=== PATIENT | female | born 1960 | race Caucasian/White ===

== ENCOUNTER 2016-07-25 09:44 | Inpatient (IN) | payer OTHER ==
[~2016-07-25] VITALS: Ht 160 cm; Wt 107.6 kg
[~2016-07-25 09:44] MED LIST: ASPIRIN325 MG PO
[2016-07-25 10:15] VITALS: BP 134/84
[2016-07-25 16:47] VITALS: BP 171/81
[2016-07-25 18:30] LABS: HEMATOCRIT 44.6 % (36.0-46.0); MCH 29.1 PG (29.0-34.0); MCHC 34.1 G/DL (30.0-36.0); MCV 85.4 FL (83-99); MEAN PLAT.VOLUME 10.6 uM^3 (9.5-12.4); PLATELET COUNT 217 K/uL (156-360); RBC DIS.WIDTH-CV 14.5 % (11.8-14.6); RED BLOOD COUNT 5.22 M/uL (3.80-5.20); WHITE BLOOD COUNT 13.3 K/uL (4.1-10.2)
[2016-07-25 18:54] LABS: ANION GAP 10 MEQ/L (2-14); CHLORIDE 105 MEQ/L (99-109); GFR ESTIMATE (CALCULATED) > 59 mL/min/; GLUCOSE 154 mg/dL (70-99); POTASSIUM 4.1 MEQ/L (3.7-5.4); SAMPLE HEMOLYSIS CHECK 0; SAMPLE ICTERIC CHECK 0; SAMPLE LIPEMIA CHECK 0; SODIUM 141 MEQ/L (136-147); UREA NITROGEN (BUN) 11 mg/dL (9-23)
[2016-07-25 19:47] VITALS: BP 175/87
[2016-07-25 23:48] VITALS: BP 151/83
[2016-07-26 03:46] VITALS: BP 121/60
[2016-07-26 06:34] LABS: HEMATOCRIT 40.2 % (36.0-46.0); MCH 28.7 PG (29.0-34.0); MCHC 33.6 G/DL (30.0-36.0); MCV 85.4 FL (83-99); MEAN PLAT.VOLUME 10.4 uM^3 (9.5-12.4); PLATELET COUNT 243 K/uL (156-360); RBC DIS.WIDTH-CV 14.5 % (11.8-14.6); RBC DIS.WIDTH-SD 45.5 % (39-53); RED BLOOD COUNT 4.71 M/uL (3.80-5.20); WHITE BLOOD COUNT 11.7 K/uL (4.1-10.2)
[2016-07-26 07:02] LABS: ANION GAP 7 MEQ/L (2-14); CHLORIDE 106 MEQ/L (99-109); GFR ESTIMATE (CALCULATED) > 59 mL/min/; GLUCOSE 135 mg/dL (70-99); POTASSIUM 4.2 MEQ/L (3.7-5.4); SAMPLE HEMOLYSIS CHECK 0; SAMPLE ICTERIC CHECK 0; SAMPLE LIPEMIA CHECK 0; SODIUM 138 MEQ/L (136-147); UREA NITROGEN (BUN) 8 mg/dL (9-23)
[2016-07-26 07:22] VITALS: BP 146/71
[2016-07-26 10:49] VITALS: BP 131/72
[2016-07-26 16:00] VITALS: BP 144/70
[2016-07-26 19:50] VITALS: BP 128/56
[2016-07-26 22:55] VITALS: BP 116/53
[2016-07-27 04:11] VITALS: BP 114/54
[2016-07-27 07:24] VITALS: BP 134/65
[2016-07-27 07:32] LABS: HEMATOCRIT 38.8 % (36.0-46.0); MCHC 33.8 G/DL (30.0-36.0); MEAN PLAT.VOLUME 10.6 uM^3 (9.5-12.4); PLATELET COUNT 225 K/uL (156-360); RBC DIS.WIDTH-CV 14.8 % (11.8-14.6); RBC DIS.WIDTH-SD 46.1 % (39-53); RED BLOOD COUNT 4.51 M/uL (3.80-5.20); WHITE BLOOD COUNT 8.5 K/uL (4.1-10.2)
[2016-07-27 07:42] LABS: ANION GAP 5 MEQ/L (2-14); CHLORIDE 106 MEQ/L (99-109); GFR ESTIMATE (CALCULATED) > 59 mL/min/; POTASSIUM 4.1 MEQ/L (3.7-5.4); SAMPLE HEMOLYSIS CHECK 0; SAMPLE ICTERIC CHECK 0; SAMPLE LIPEMIA CHECK 0; SODIUM 139 MEQ/L (136-147); UREA NITROGEN (BUN) 12 mg/dL (9-23)
[2016-07-27 07:45] LABS: GLUCOSE 95 mg/dL (70-99)
[2016-07-27] MEDS ORDERED: TRAMADOL HCL50 MG PO (09:49)
== END 2016-07-27 17:33 | disposition home or self-care (01) | DRG 740 ==
LOC: 2SOUTH 09:44 → 2EAST 15:54 → 2SOUTH 16:56 → 2EAST 07-27 17:33
PROVIDERS: Obstetrics & Gynecology Gynecologic Oncology
DX: C54.1 Malignant neoplasm of endometrium (principal); Z68.41 Body mass index [BMI] 40.0-44.9, adult; E66.9 Obesity, unspecified
CPT/HCPCS: 80048; 85027; 86850; 86900; 86901; 86920; 88305; 88309; 94799; J0330; J0690; J1100; J1170; J1650; J1885; J2270; J2405; J2710; J2765; J3010

== ENCOUNTER 2016-08-15 12:16 | Emergency (ER) | payer OTHER ==
[~2016-08-15] VITALS: Ht 162.6 cm; Wt 104.8 kg
[~2016-08-15 12:16] MED LIST changes: +TRAMADOL HCL50 MG PO
[2016-08-15] MEDS ORDERED: NAPROXEN SODIU220 MG PO (13:00)
[2016-08-15 13:36] LABS: ADD MIUA? YES; BILIRUBIN NEGATIVE; BLOOD SMALL; COLOR YELLOW ((YELLOW)); GLUCOSE (STRIP) NEGATIVE; KETONES NEGATIVE; LEUKOCYTES TRACE; NITRITE NEGATIVE; PROTEIN (STRIP) NEGATIVE; SPECIFIC GRAVITY 1.012 (1.000-1.030); UROBILINOGEN 0.2 MG/DL (0.2-1.0)
[2016-08-15 13:36] LABS: MCH 28.4 PG (29.0-34.0); MCHC 33.8 G/DL (30.0-36.0); MEAN PLAT.VOLUME 9.9 uM^3 (9.5-12.4); PLATELET COUNT 323 K/uL (156-360); RBC DIS.WIDTH-CV 14.7 % (11.8-14.6); RBC DIS.WIDTH-SD 44.3 % (39-53); RED BLOOD COUNT 5.36 M/uL (3.80-5.20)
[2016-08-15 13:39] LABS: BACTERIA NONE SEEN /HPF; EPITHELIAL CELLS RARE /HPF; MUCUS TRACE /LPF; RED BLOOD CELLS 0-5 /HPF (0-5); UCUL ADDED? NO; WHITE BLOOD CELLS 0-5 /HPF (0-5)
[2016-08-15 13:43] LABS: CHLORIDE 106 mEq/L (99-109); POTASSIUM 4.3 mEq/L (3.7-5.4); SODIUM 142 mEq/L (136-147)
[2016-08-15 13:44] LABS: GLUCOSE 83 mg/dL (70-99)
[2016-08-15 13:46] LABS: ANION GAP 11 MEQ/L (2-14)
[2016-08-15 13:48] LABS: GFR ESTIMATE (CALCULATED) > 59 mL/min/
[2016-08-15 13:49] LABS: UREA NITROGEN (BUN) 14 mg/dL (9-23)
[2016-08-15 15:54] VITALS: BP 137/76
== END 2016-08-15 16:05 | disposition home or self-care (01) ==
LOC: EME 12:16
PROVIDERS: Emergency Medicine
DX: R10.30 Lower abdominal pain, unspecified (principal); R91.1 Solitary pulmonary nodule; R19.00 Intra-abdominal and pelvic swelling, mass and lump, unspecified site; Z85.42 Personal history of malignant neoplasm of other parts of uterus
CPT/HCPCS: 74177; 80048; 81003; 85027; 99281; 99285